=== PATIENT | female | born 1940 | race Caucasian/White ===

== ENCOUNTER 2017-05-30 08:40 | Day surgery (SDC) | payer OTHER, MEDICAID ==
--- NOTE | 2017-05-30 08:00 | PDHPUP ---
History & Physical Update H&P update statement: This history and physical update is based on an assessment of the patient which was completed after admission or registration (within 24 hours), but prior to the surgery/procedure. H&P update: H&P reviewed & patient examined, no change in patient's condition since H&P completed
[~2017-05-30 08:40] MED LIST: BUPIVACAINE 0.5% 30 ML SDV ONE; PAPAVERINE HCL 60 MG/2 ML SDV ONE; PROTAMINE SULFATE 50 MG/5 ML VIAL IVP ONE; THROMBIN (BOVINE) 20,000 UNIT SPRAY TP ONE; ceFAZolin 2 GM/DEXTROSE 100 ML IV ONE
[2017-05-30] MEDS ORDERED: LIDOCAINE 1% 2 ML INJ ONE (09:05)
[2017-05-30] MEDS ORDERED: CEFAZOLIN 2 GM/DEXTROSE/100 ML BAG IV ONE (09:05)
[2017-05-30] MEDS ORDERED: NS 1,000 ML IV ONE (09:43)
[2017-05-30] MEDS ORDERED: LIDOCAINE 1% 2 ML INJ ID PRN (09:43)
[2017-05-30 09:53] LABS: % IMMATURE GRANULYOCYTES 1.1 % (0.0-1.1); ABSOLUTE IMMATURE GRANULOCYTES 0.11 10^3/uL (0.00-0.10); ADD DIFF? NO; ADD MORPH? NO; ADD SCAN? NO; ATYPICAL LYMPHOCYTE FLAG 0 (0-99); FRAGMENT RBC FLAG 0 (0-99); HEMATOCRIT 29.8 % (38.0-47.0); HEMOGLOBIN 9.8 g/dL (12.6-16.3); LEFT SHIFT FLG 30 (0-99); LIPEMIA HEMOLYSIS FLAG 80 (0-99); MEAN CELL HEMOGLOBIN 28.6 pg (27.9-34.1); MEAN CELL HEMOGLOBIN CONCENTR. 32.9 g/dL (32.4-36.7); MEAN CELL VOLUME 86.9 fL (81.5-99.8); MEAN PLATELET VOLUME 9.5 fL (8.7-11.7); PLATELET CLUMPS FLAG 0 (0-99); PLATELET COUNT 233 10^3/uL (150-400); RED BLOOD CELL COUNT 3.43 10^6/uL (4.18-5.33); RED CELL DISTRIBUTION WIDTH 16.1 % (11.5-15.2)
[2017-05-30 10:09] LABS: ANION GAP 14 mEq/L (8-16); CALCIUM 9.3 mg/dL (8.5-10.4); CARBON DIOXIDE 23 mEq/l (22-31); CHLORIDE 99 mEq/L (97-110); CREATININE 2.4 mg/dL (0.6-1.0); GLOMERULAR FILTRATION RATE 20; GLUCOSE 95 mg/dL (70-100); POTASSIUM 5.6 mEq/L (3.5-5.2); SODIUM 136 mEq/L (134-144)
[2017-05-30] MEDS ORDERED: PROPOFOL/EMULSION 500 MG/50 ML BOTTLE IV ONE (10:13)
[2017-05-30] MEDS ORDERED: fentaNYL 100 MCG/2 ML INJ ONE ×2 (10:16→10:57)
[2017-05-30] MEDS ORDERED: VASOPRESSIN 20 UNIT/ML VIAL ONE (10:23)
[2017-05-30] MEDS ORDERED: fentaNYL 100 MCG/2 ML INJ IVP PRN (11:21)
[2017-05-30] MEDS ORDERED: NALOXONE HCL 0.4 MG/ML INJ IVP PRN (11:21)
--- NOTE | 2017-05-30 11:35 | PDANEPAE ---
ANE History of Present Illness present for AVF for ESRD ANE Past Medical History - Cardiovascular History Hx Hypertension: Yes Hx Arrhythmias: Yes Hx Chest Pain: No Hx Coronary Artery / Peripheral Vascular Disease: Yes Hx CHF / Valvular Disease: Yes Hx Palpitations: No - Pulmonary History Hx COPD: Yes Hx Asthma/Reactive Airway Disease: No Hx Recent Upper Respiratory Infection: No Hx Oxygen in Use at Home: Yes O2 in Use at Home (L/minute): 2L Hx Sleep Apnea: Yes Sleep Apnea Screening Result - Last Documented: Positive - Neurologic History Hx Cerebrovascular Accident: No Hx Seizures: No Hx Dementia: No - Endocrine History Hx Diabetes: Yes Obesity: yes, moderate - Renal History Hx Renal Disorders: Yes Renal History Comment: END STAGE RENAL DISEASE - Liver History Hx Hepatic Disorders: No - Neurological & Psychiatric Hx Hx Neurological and Psychiatric Disorders: Yes Neurological / Psychiatric History Comment: DEPRESSION - Cancer History Hx Cancer: Yes Cancer History Comment: RIGHT BREAST CANCER CURRENTLY - - Congenital Disorder History Hx Congenital Disorders: No - GI History Hx Gastrointestinal Disorders: No - Chronic Pain History Chronic Pain: No - Surgical History Prior Surgeries: PARTIAL HYSTERECTOMY 2004. 1971 ("I THINK, I CAN'T REMEMBER OFF HAND") ANE Review of Systems Review of systems is: negative - Exercise capacity Exercise capacity: <4 METS METS (RN): 2 METS ANE Patient History - Allergies Allergies/Adverse Reactions: codeine Allergy (Verified 05/29/17 17:28) - Home Medications Home medications: home medication list seen and reviewed Home Medications: ACETAMINOPHEN 05/26/17 [Last Taken 05/29/17] Albuterol 05/26/17 [Last Taken 05/29/17] Allopurinol 05/26/17 [Last Taken 05/29/17] Anastrozole 05/26/17 [Last Taken 05/29/17] Bumex 05/26/17 [Last Taken 05/29/17] CULTURELLE 05/26/17 [Last Taken Unknown] Carvedilol 05/26/17 [Last Taken 05/29/17] Ditropan 05/26/17 [Last Taken 05/29/17] Dulcolax 05/26/17 [Last Taken 3 Months Ago] Ferrous Sulfate 05/26/17 [Last Taken 05/29/17 07:00] Flonase Nasal [place] 05/26/17 [Last Taken 2 Days Ago] Glucotrol 05/26/17 [Last Taken 05/29/17 20:00] Heparin 05/26/17 [Last Taken Unknown] Isosorbide Dinitrate 05/26/17 [Last Taken 3 Months Ago] Lipitor 05/26/17 [Last Taken 05/29/17 20:00] Miconazole 05/26/17 [Last Taken 1 Month Ago] Norvasc 05/26/17 [Last Taken 05/30/17 07:00] Pepcid 05/26/17 [Last Taken 1 Month Ago] Promethazine 25 mg Prepack #4 05/26/17 [Last Taken 3 Months Ago] Senokot 05/26/17 [Last Taken 3 Months Ago] Synthroid 05/26/17 [Last Taken 05/29/17 08:00] VITAMIN D 05/26/17 [Last Taken 05/29/17 08:00] Voltaren 0.1% (*) 05/26/17 [Last Taken 2 Months Ago] Zantac 05/26/17 [Last Taken 05/29/17] Zofran 05/26/17 [Last Taken 3 Weeks Ago] hydrALAZINE 05/26/17 [Last Taken 05/29/17 20:00] - NPO status NPO Status: no food or drink >8 hours NPO Since - Liquids (Date): 05/30/17 NPO Since - Liquids (Time): 06:00 NPO Since - Solids (Date): 05/29/17 NPO Since - Solids (Time): 21:00 - Smoking Hx Smoking Status: Never smoked - Family Anes Hx Family Hx Anesthesia Complications: N/A ANE Labs/Vital Signs - Labs Result Diagrams: 05/30/17 09:31 05/29/17 17:25 - Vital Signs Blood Pressure: 156/82 Heart Rate: 74 Respiratory Rate: 16 O2 Sat (%): 98 Height: 157.48 cm Weight: 97.976 kg ANE Physical Exam - Airway Neck exam: FROM Mallampati Score: Class 2 - Pulmonary Pulmonary: no respiratory distress - Cardiovascular Cardiovascular: regular rate and rhythym - ASA Status ASA Status: IV ANE Anesthesia Plan Anesthesia Plan: GA w LMA Urgent/Emergent Case: Pratima isaacs completed preop but documented later for safe timely pt care
[2017-05-30] MEDS ORDERED: HYDROCODONE/APAP 5/325 TAB PO PRN (11:46)
--- NOTE | 2017-05-30 11:48 | POSTOPPROG ---
Post Op Note Date of Operation: 05/30/17 Surgeon: Guero Mcdonald Grinder Watch Parts: Geni Modi Anesthesiologist: Nilson Pascual Anesthesia: GET(General Endotracheal) Pre-op Diagnosis: CRF Post-op Diagnosis: same Procedure: LUE brachiocephalic AVF Findings: good thrill, cephalic vein goes deep proximally Inf/Abcess present in the surg proc area at time of surgery?: No EBL: Minimal Complications: none
[2017-05-30 12:24] VITALS: TEMP 98.2
[2017-05-30 12:26] VITALS: BP 143/45; PULSE 91; RESP 16; O2SAT 96
--- NOTE | 2017-05-31 05:28 | GOP ---
[f rep st] OPERATIVE REPORT DATE OF OPERATION: SURGEON: Guero Mcdonald MD POST COMMANDER: RAMYA Pedro ANESTHESIOLOGIST: Dr. Pascual. PREOPERATIVE DIAGNOSIS: Chronic renal failure. POSTOPERATIVE DIAGNOSIS: Chronic renal failure. PROCEDURE PERFORMED: Ultrasound vein mapping left arm and a left brachiocephalic AV fistula. FINDINGS: The patient was found to have an adequate cephalic vein in the left upper arm. Cephalic vein at the wrist was quite small. The basilic vein was quite huge as well in the upper arm. Both basilic and cephalic veins were somewhat deep in the upper arm. DESCRIPTION OF PROCEDURE: Patient taken to the operating room, received satisfactory general endotr acheal anesthesia by Dr. Pascual. She was placed in supine position with the left arm outstretched o n the arm board, prepped and draped in the usual sterile fashion. Using ultrasound, the veins were evaluated as noted above. It was elected to proceed with brachiocephalic AV fistula. A curvilinear incision was made in the antecubital space. Dissection extended down through the subc utaneous tissue and through the biceps aponeurosis, and the brachial artery was dissected free and c ontrolled with vessel loops. The cephalic vein was dissected free all the way down into the forearm where it began to divide. The branches were triply ligated with silk and divided, and the distal p ortion of the cephalic vein was prepared for anastomosis. The patient was fully heparinized at this point and an end-to-side anastomosis was made to the brachial artery, creating a 1 cm anastomosis w ith a running 6-0 Prolene suture. Flow was first established through the AV fistula and then back d own the hand. She maintained a radial pulse and excellent flow in the AV fistula. Hemostasis was a ssured. Heparin was reversed with protamine. The wound was sprayed with some topical thrombin and infiltrated with 0.5% Marcaine and closed in layers using 3-0 Vicryl for the subcutaneous tissue, 4- 0 Monocryl subcuticular stitch for the skin. All layers infiltrated with 0.5% Marcaine. Blood loss was less than 20 cc. There were no complications. Taken to the recovery room in good condition. /[id number]/MODL
== END 2017-05-30 12:44 | disposition home or self-care (01) ==
LOC: FSGY 08:40
PROVIDERS: ATTEND Surgery
PROC: 03180ZD Bypass Left Brachial Artery to Upper Arm Vein, Open Approach (ICD-10-PCS; principal; 2017-05-30 10:45)
DX: N18.6 End stage renal disease (principal); E11.22 Type 2 diabetes mellitus with diabetic chronic kidney disease; I13.11 Hypertensive heart and chronic kidney disease without heart failure, with stage 5 chronic kidney disease, or end stage renal disease; I50.9 Heart failure, unspecified; C50.911 Malignant neoplasm of unspecified site of right female breast; I25.10 Atherosclerotic heart disease of native coronary artery without angina pectoris; I27.2 Other secondary pulmonary hypertension; G47.33 Obstructive sleep apnea (adult) (pediatric); I34.0 Nonrheumatic mitral (valve) insufficiency; I42.9 Cardiomyopathy, unspecified; E03.9 Hypothyroidism, unspecified; I07.1 Rheumatic tricuspid insufficiency; E66.01 Morbid (severe) obesity due to excess calories; R41.89 Other symptoms and signs involving cognitive functions and awareness; H35.30 Unspecified macular degeneration; Z68.39 Body mass index [BMI] 39.0-39.9, adult; Z82.49 Family history of ischemic heart disease and other diseases of the circulatory system; Z99.2 Dependence on renal dialysis; Z79.4 Long term (current) use of insulin
CPT/HCPCS: J0690; J1644; J2440; J2704; J2720; J3010

== ENCOUNTER → 2018-10-09 | Outpatient (CLI) | payer OTHER, MEDICAID | LOC: BHFA 15:30 | PROVIDERS: ATTEND Internal Medicine Cardiovascular Disease | DX: R00.1 Bradycardia, unspecified (principal) ==

== ENCOUNTER 2018-10-15 13:06 | Inpatient (IN) | payer OTHER, MEDICAID ==
--- NOTE | 2018-10-15 13:20 | EDPHY ---
HPI/HX/ROS/PE/MDM Narrative: CHIEF COMPLAINT: Bradycardia, chest pain, cough HPI: This is a 78 y/o female with a history of diabetes, hypertension, and end- stage renal disease arriving via EMS from dialysis complaining of chest pain and a cough onset during dialysis this afternoon. She completed 0.7/3.5L of her dialysis treatment today when staff noticed she was bradycardic in the 40s. She complained of associated mild chest pain that she has difficulty describing. She has remained normotensive and alert throughout this episode. She also complains of a productive cough for the last two weeks with yellow sputum. Per records, she has been evaluated for similar episodes of bradycardia and lightheadedness during dialysis. An electrophysiology consult from June showed sinus pauses and PACs in bigeminy that was thought to be vasovagal in nature. There was discussion on completing Holter monitoring to further assess this. REVIEW OF SYSTEMS: Aside from elements discussed in the HPI, a comprehensive 10-point review of systems was reviewed and is negative. PMH: Diabetes type II, end stage renal disease, hypertension, anemia, developmental delay, obesity. Records reviewed including transfer paperwork from [facility] [employer] [employer]. SOCIAL HISTORY: Lives at [facility]. 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 Change House Attendant: Dr. Potts PHYSICAL EXAM: General:Patient is alert, in no acute distress. Obese. ENT:Eyes are normal to inspection. ENT inspection normal. Neck: Normal inspection. Full range of motion. Respiratory:No respiratory distress. Breath sounds normal bilaterally. Cardiovascular: Bradycardic rate. Normal cap refill. Abdomen:The abdomen is nontender to palpation. There are no peritoneal signs. Back: Normal to inspection. No tenderness to palpation. Skin: Normal color. No rash. Warm and dry. Extremities: NNo signs of trauma. Neuro: No focal deficits. ED Course: This is an obese 78 y/o dialysis patient with multiple prior episode of bradycardia during dialysis who presents with the same today now associated with vague chest pain. Records show she was previously evaluated by cardiology for this with plan for Holter monitor, though we do not have access to those records. She is actively coughing during exam. Plan for IV, labs, EKG, chest x- ray, and cardiology consult. The 12 lead EKG was interpreted by myself. Junctional bigeminy. See hard copy and/or "tracemaster" electronic copy for interpretation. POC Troponin 0.00. Creatinine 5.5. 1325: Consulted with Dr. Quiroz, erection shop supervisor. 1346: Consulted with Dr. Quiroz. She recommends admission. Spoke with hospitalist service. Dr. Ovalle accepts admission. - Data Points Imaging Results: Imaging Impressions Chest X-Ray 10/15/18 13:21 Impression: Mild fluid overload. No rigoberto failure or edema. Imaging: I viewed and interpreted images myself Laboratory Results: Laboratory Results 10/15/18 13:00 10/15/18 13:00 10/15/18 10/15/18 10/15/18 13:15 13:00 13:00 WBC RBC Hgb Hct MCV MCH MCHC RDW Plt Count MPV Neut % (Auto) Lymph % (Auto) [place] % (Auto) Eos % (Auto) Baso % (Auto) Nucleat RBC Rel Count Absolute Neuts (auto) Absolute Lymphs (auto) Absolute Monos (auto) Absolute Eos (auto) Absolute Basos (auto) Absolute Nucleated RBC Immature Gran % Immature Gran # PT 13.2 SEC SEC (12.0-15.0) INR 0.98 (0.83-1.16) APTT 30.5 SEC SEC (23.0-38.0) Sodium 134 mEq/L L mEq/L (135-145) Potassium 4.4 mEq/L mEq/L (3.3-5.0) Chloride 91 mEq/L L mEq/L (97-110) Carbon Dioxide 28 mEq/l mEq/l (22-31) Anion Gap 15 mEq/L H mEq/L (6-14) BUN 51 mg/dL H mg/dL (7-23) Creatinine 5.5 mg/dL H mg/dL (0.6-1.0) Estimated GFR 8 Glucose 143 mg/dL H mg/dL (70-100) Calcium 9.0 mg/dL mg/dL (8.5-10.4) POC Troponin I 0.00 ng/mL ng/mL (0.00-0.08) 10/15/18 13:00 WBC 13.45 10^3/uL H 10^3/uL (3.80-9.50) RBC 3.23 10^6/uL L 10^6/uL (4.18-5.33) Hgb 10.0 g/dL L g/dL (12.6-16.3) Hct 31.0 % L % (38.0-47.0) MCV 96.0 fL fL (81.5-99.8) MCH 31.0 pg pg (27.9-34.1) MCHC 32.3 g/dL L g/dL (32.4-36.7) RDW 15.9 % H % (11.5-15.2) Plt Count 250 10^3/uL 10^3/uL (150-400) MPV 9.7 fL fL (8.7-11.7) Neut % (Auto) 74.7 % H % (39.3-74.2) Lymph % (Auto) 15.5 % % (15.0-45.0) [place] % (Auto) 6.1 % % (4.5-13.0) Eos % (Auto) 2.5 % % (0.6-7.6) Baso % (Auto) 0.4 % % (0.3-1.7) Nucleat RBC Rel Count 0.0 % % (0.0-0.2) Absolute Neuts (auto) 10.03 10^3/uL H 10^3/uL (1.70-6.50) Absolute Lymphs (auto) 2.09 10^3/uL 10^3/uL (1.00-3.00) Absolute Monos (auto) 0.82 10^3/uL H 10^3/uL (0.30-0.80) Absolute Eos (auto) 0.34 10^3/uL 10^3/uL (0.03-0.40) Absolute Basos (auto) 0.06 10^3/uL 10^3/uL (0.02-0.10) Absolute Nucleated RBC 0.00 10^3/uL 10^3/uL (0-0.01) Immature Gran % 0.8 % % (0.0-1.1) Immature Gran # 0.11 10^3/uL H 10^3/uL (0.00-0.10) PT INR APTT Sodium Potassium Chloride Carbon Dioxide Anion Gap BUN Creatinine Estimated GFR Glucose Calcium POC Troponin I Point of Care Test Results: Chemistry 10/15/18 13:15 POC Troponin I 0.00 ng/mL ng/mL (0.00-0.08) General Time Seen by Provider: 10/15/18 13:07 Initial Vital Signs: Initial Vital Signs Heart Rate 64 10/15/18 13:10 Respiratory Rate 21 H 10/15/18 13:10 Blood Pressure 128/40 H 10/15/18 13:10 O2 Sat (%) 95 10/15/18 13:10 O2 Delivery Mode Nasal Cannula O2 (L/minute) 2 Allergies/Adverse Reactions: codeine Allergy (Verified 05/29/17 17:28) Home Medications: Medication Instructions Recorded Acetaminophen [Tylenol 325mg (*)] 650 mg PO Q6 PRN 10/15/18 Albuterol [Proventil Neb] 2.5 mg IH Q4H PRN 10/15/18 Allopurinol [Allopurinol 100 MG 100 mg PO DAILY 10/15/18 (*)] Anastrozole [Arimidex 1 mg (*)] 1 mg PO DAILY 10/15/18 Aspirin EC [Aspirin EC 81 mg (*)] 81 mg PO DAILY 10/15/18 Atorvastatin Calcium [Lipitor 40 40 mg PO DAILY 10/15/18 mg (*)] Calcium Carbonate [Tums X-Str] 300 mg PO TID 10/15/18 Cholecalciferol Vit D3 [Vitamin D3 1,000 units PO DAILY 10/15/18 (*)] Ferrous Sulfate [Ferrous Sulf 325 325 mg PO DAILY 10/15/18 MG (*)] Fluticasone Propionate [Flonase 1 spray EACHNARE BID PRN 10/15/18 Allergy Relief] Furosemide [Lasix 40 MG (*)] 40 mg PO DAILY 10/15/18 Gabapentin [Neurontin 100 MG (*)] 100 mg PO TID 10/15/18 Herbals/Supplements -Info Only 1 ea PO DAILY 10/15/18 Isosorbide Dinitrate [Isosorbide 20 mg PO BIDNITRATE 10/15/18 Dinitrate 20 mg (*)] Levothyroxine [Synthroid 75 mcg 75 mcg PO MOWEFR 10/15/18 (*)] Lidocaine 1% [Xylocaine-Mpf 1% SDV 0.5 ml IJ DAILY PRN 10/15/18 (*)] Lidocaine 2% Jelly [Lidocaine 2% 1 mike MM DAILY PRN 10/15/18 Jelly (*)] Meclizine HCl 25 mg PO TID PRN 10/15/18 Miconazole Nitrate [Desenex] 30 gm TP BID PRN 10/15/18 Nystatin Powder [Mycostatin Powder 1 mike TOP TID 10/15/18 (RX)] Polyethylene Glycol 3350 [Miralax 17 gm PO DAILY PRN 10/15/18 17 gm (*)] Promethazine HCl [Phenergan 25mg 25 mg PO DAILY PRN 10/15/18 (*)] Ranitidine HCl 150 mg PO BID 10/15/18 Sevelamer Carbonate [Renvela] 800 mg PO TIDMEAL 10/15/18 Sodium Chloride [Saline Nose [place]] 1 spray NS Q1HR PRN 10/15/18 Triamcinolone 0.1% [Triamcinolone 1 mike TP BID PRN 10/15/18 0.1% Cream (*)] guaiFENesin [Cough Syrup] 10 ml PO Q6H PRN 10/15/18 hydrALAZINE [Apresoline 50 mg (*)] 50 mg PO TID 10/15/18 methylPREDNISolone ACETATE 20 mg IJ DAILY PRN 10/15/18 [Depo-Medrol 20 mg] traMADol [Ultram 50 mg (*)] 50 mg PO BID PRN 10/15/18 Departure - Departure Disposition: [facility] Acute Clinical Impression: Junctional bradycardia Chest pain Qualifiers: Chest pain type: other chest pain Qualified Code(s): R07.89 - Other chest pain Condition: Fair Report Scribed for: Gage Barajas Report Scribed by: Lucita Hernadnez Date of Report: 10/15/18 Time of Report: 13:06 Physician Review and Approval Statement: Portions of this note were transcribed by an ED scribe. I personally performed the history, physical exam, and medical decision making; and confirm the accuracy of the information in the transcribed note.
[2018-10-15 13:29] LABS: PLATELET COUNT 250 10^3/uL (150-400)
[2018-10-15 13:36] LABS: INR 0.98 (0.83-1.16); PROTIME(PATIENT) 13.2 SEC (12.0-15.0)
--- NOTE | 2018-10-15 14:34 | PDCONSULT ---
[facility] Note: Assessment/Plan: ESRD: on HD MWF, only got about 30 min dialysis today. - No emergent HD needs at this time. - WIll plan on HD tomorrow off-schedule and then resume MWF schedule. Anemia: Hgb at goal at 10.0, pt gets epo and iron as needed in outpatient dialysis unit. Bradycardia: would recommend cardiology consult. ROBERT: will check phos with am labs. Thank you for the interesting consult. Nephrology will continue to follow, please call if you have any additional questions or concerns. H & P Stated Complaint: cough and bradycardia Time Seen by Provider: 10/15/18 13:07 HPI/ROS: HPI: Ms. Burnett is a 78 yo F with h/o ESRD on HD MWF at [facility]. Pt went to her dialysis unit today and was found to have bradycardia in 30s, was put on dialysis and did a little over 30 minutes of dialysis but remained bradycardic, taken off and sent to ER. Pt has been seeing cardiology recently and supposed to be getting a holter monitor, not yet interpreted. Pt states she otherwise feels fine. ROS: positive per HPI, rest of 10-point ROS negative Source: Patient - Medical/Surgical History Hx Chronic Respiratory Disease: Yes Hx Diabetes: Yes Hx Renal Disease: Yes Hx Cirrhosis: No Hx Alcoholism: No Hx HIV/AIDS: No Hx Splenectomy or Spleen Trauma: No Other PMH: CHF, diabetes, hypothyroid, Chronic bronchitis - Family History Significant Family History: No pertinent family hx - Social History Smoking Status: Never smoked - Physical Exam Exam: General: alert and oriented, no acute distress Eyes: EOMI, PERRL OP: Clear, MMM Neck: supple, no thyromegaly CV: bradycardia, regularly irregular rhythm Resp: CTA bilat, nonlabored respirations Abd: Soft, NT/ND Ext: trace edema BLE Neuro: CN II-XII grossly intact, no asterixis Psych: cooperative, appropriate mood and affect Access: LUE AVF with thrill and bruit appreciated Constitutional: Initial Vital Signs Temperature (C) 36.7 C 10/15/18 13:12 Heart Rate 73 10/15/18 13:12 Respiratory Rate 21 H 10/15/18 13:12 O2 Sat (%) 95 10/15/18 13:12 O2 Delivery Mode Nasal Cannula O2 (L/minute) 2 Allergies/Adverse Reactions: codeine Allergy (Verified 05/29/17 17:28) Home Medications: Medication Instructions Recorded ACETAMINOPHEN 05/26/17 Albuterol 05/26/17 Allopurinol 05/26/17 Anastrozole 05/26/17 Bumex 05/26/17 CULTURELLE 05/26/17 Carvedilol 05/26/17 Ditropan 05/26/17 Dulcolax 05/26/17 Ferrous Sulfate 05/26/17 Flonase Nasal [place] 05/26/17 Glucotrol 05/26/17 Heparin 05/26/17 Isosorbide Dinitrate 05/26/17 Lipitor 05/26/17 Miconazole 05/26/17 Norvasc 05/26/17 Pepcid 05/26/17 Promethazine 25 mg Prepack #4 05/26/17 Senokot 05/26/17 Synthroid 05/26/17 VITAMIN D 05/26/17 Voltaren 0.1% (*) 05/26/17 Zantac 05/26/17 Zofran 05/26/17 hydrALAZINE 05/26/17 Hydrocodone/APAP 5/325 [[place] 1 - 2 tab PO Q4H PRN #20 tab 05/30/17 5/325 (*)] Lab and Imaging 10/15/18 13:00 10/15/18 13:00 WBC 13.45 10^3/uL (3.80-9.50) H 10/15/18 13:00 RBC 3.23 10^6/uL (4.18-5.33) L 10/15/18 13:00 Hgb 10.0 g/dL (12.6-16.3) L 10/15/18 13:00 Hct 31.0 % (38.0-47.0) L 10/15/18 13:00 MCV 96.0 fL (81.5-99.8) 10/15/18 13:00 MCH 31.0 pg (27.9-34.1) 10/15/18 13:00 MCHC 32.3 g/dL (32.4-36.7) L 10/15/18 13:00 RDW 15.9 % (11.5-15.2) H 10/15/18 13:00 Plt Count 250 10^3/uL (150-400) 10/15/18 13:00 MPV 9.7 fL (8.7-11.7) 10/15/18 13:00 Neut % (Auto) 74.7 % (39.3-74.2) H 10/15/18 13:00 Lymph % (Auto) 15.5 % (15.0-45.0) 10/15/18 13:00 [place] % (Auto) 6.1 % (4.5-13.0) 10/15/18 13:00 Eos % (Auto) 2.5 % (0.6-7.6) 10/15/18 13:00 Baso % (Auto) 0.4 % (0.3-1.7) 10/15/18 13:00 Nucleat RBC Rel Count 0.0 % (0.0-0.2) 10/15/18 13:00 Absolute Neuts (auto) 10.03 10^3/uL (1.70-6.50) H 10/15/18 13:00 Absolute Lymphs (auto) 2.09 10^3/uL (1.00-3.00) 10/15/18 13:00 Absolute Monos (auto) 0.82 10^3/uL (0.30-0.80) H 10/15/18 13:00 Absolute Eos (auto) 0.34 10^3/uL (0.03-0.40) 10/15/18 13:00 Absolute Basos (auto) 0.06 10^3/uL (0.02-0.10) 10/15/18 13:00 Absolute Nucleated RBC 0.00 10^3/uL (0-0.01) 10/15/18 13:00 Immature Gran % 0.8 % (0.0-1.1) 10/15/18 13:00 Immature Gran # 0.11 10^3/uL (0.00-0.10) H 10/15/18 13:00 PT 13.2 SEC (12.0-15.0) 10/15/18 13:00 INR 0.98 (0.83-1.16) 10/15/18 13:00 APTT 30.5 SEC (23.0-38.0) 10/15/18 13:00 Sodium 134 mEq/L (135-145) L 10/15/18 13:00 Potassium 4.4 mEq/L (3.3-5.0) 10/15/18 13:00 Chloride 91 mEq/L (97-110) L 10/15/18 13:00 Carbon Dioxide 28 mEq/l (22-31) 10/15/18 13:00 Anion Gap 15 mEq/L (6-14) H 10/15/18 13:00 BUN 51 mg/dL (7-23) H 10/15/18 13:00 Creatinine 5.5 mg/dL (0.6-1.0) H 10/15/18 13:00 Estimated GFR 8 10/15/18 13:00 Glucose 143 mg/dL (70-100) H 10/15/18 13:00 Calcium 9.0 mg/dL (8.5-10.4) 10/15/18 13:00 POC Troponin I 0.00 ng/mL (0.00-0.08) 10/15/18 13:15
[2018-10-15] MEDS ORDERED: HYDROCODONE/APAP 5/325 TAB PO PRN (15:20)
[2018-10-15] MEDS ORDERED: HYDROmorphONE/DILAUDID 1 MG/ML INJ IVP PRN (15:20)
[2018-10-15] MEDS ORDERED: ONDANSETRON DISINTEGRATING 4 MG TAB PO PRN (15:20)
[2018-10-15] MEDS ORDERED: oxyCODONE IR 5 MG TAB PO PRN (15:20)
[2018-10-15] MEDS ORDERED: ONDANSETRON 4 MG/2 ML VIAL IVP PRN (15:20)
[2018-10-15] MEDS ORDERED: PROMETHAZINE HCL 25 MG/ML INJ IVP PRN (15:20)
[2018-10-15] MEDS ORDERED: PROMETHAZINE HCL 25 MG TAB PO PRN (17:31)
[2018-10-15] MEDS ORDERED: POLYETHYLENE GLYCOL 3350 17 GM PKT PO PRN (17:31)
[2018-10-15] MEDS ORDERED: MICONAZOLE NITRATE TP PRN (17:31)
[2018-10-15] MEDS ORDERED: LIDOCAINE 2% JELLY 5 ML TUBE MM PRN (17:31)
[2018-10-15] MEDS ORDERED: SODIUM CL NASAL 45 ML BTL NS PRN (17:31)
[2018-10-15] MEDS ORDERED: TRIAMCINOLONE 0.1% 15 GM CRTUBE TP PRN (17:31)
[2018-10-15] MEDS ORDERED: METHYLPREDNISOLONE ACETATE IJ PRN (17:31)
[2018-10-15] MEDS ORDERED: MECLIZINE HCL 25 MG TAB PO PRN (17:31)
--- NOTE | 2018-10-15 17:40 | PDGENHP ---
History and Physical - Chief Complaint bradycardic - History of Present Illness 78 yo F with multiple medical issues including ESRD, CHF, DM2 presenting from HD clinic with bradycardia to the 30s. Patient notes she was not very symptomatic when this was happening other than maybe a bit more fatigued and sob. She has had this happen several other times recently and was hospitalized previously at [facility] and seen by a pharmacy operations specialist at [facility] as well as at [facility] and recently completed wearing a Holter for one week. Her daughter accompanies her here today and states that it has happened a couple of times at HD and at those times was attributed to hyperkalemia, but it has happened outside of HD as well, and the pharmacy operations specialist at [facility] thought it was due to vasovagal events. Patient has had a 'cold' recently, with productive cough but not really any other sxs. She denies chest pain, lightheadedness or near syncope or sob or change in exercise capacity. She only completed 1 hour of HD today due to her bradycardia. History Information - Allergies/Home Medication List Allergies/Adverse Reactions: codeine Allergy (Verified 05/29/17 17:28) Home Medications: Acetaminophen [Tylenol 325mg (*)] 650 mg PO Q6 PRN 10/15/18 [Last Taken Unknown] Albuterol [Proventil Neb] 2.5 mg IH Q4H PRN 10/15/18 [Last Taken Unknown] Allopurinol [Allopurinol 100 MG (*)] 100 mg PO DAILY 10/15/18 [Last Taken Unknown] Anastrozole [Arimidex 1 mg (*)] 1 mg PO DAILY 10/15/18 [Last Taken Unknown] Aspirin EC [Aspirin EC 81 mg (*)] 81 mg PO DAILY 10/15/18 [Last Taken Unknown] Atorvastatin Calcium [Lipitor 40 mg (*)] 40 mg PO DAILY 10/15/18 [Last Taken Unknown] Calcium Carbonate [Tums X-Str] 300 mg PO TID 10/15/18 [Last Taken Unknown] Cholecalciferol Vit D3 [Vitamin D3 (*)] 1,000 units PO DAILY 10/15/18 [Last Taken Unknown] Ferrous Sulfate [Ferrous Sulf 325 MG (*)] 325 mg PO DAILY 10/15/18 [Last Taken Unknown] Fluticasone Propionate [Flonase Allergy Relief] 1 spray EACHNARE BID PRN [Last Taken Unknown] Furosemide [Lasix 40 MG (*)] 40 mg PO DAILY 10/15/18 [Last Taken Unknown] Gabapentin [Neurontin 100 MG (*)] 100 mg PO TID 10/15/18 [Last Taken Unknown] Herbals/Supplements -Info Only 1 ea PO DAILY 10/15/18 [Last Taken Unknown] Isosorbide Dinitrate [Isosorbide Dinitrate 20 mg (*)] 20 mg PO BIDNITRATE [Last Taken Unknown] Levothyroxine [Synthroid 75 mcg (*)] 75 mcg PO MOWEFR 10/15/18 [Last Taken Unknown] Lidocaine 1% [Xylocaine-Mpf 1% SDV (*)] 0.5 ml IJ DAILY PRN 10/15/18 [Last Taken Unknown] Lidocaine 2% Jelly [Lidocaine 2% Jelly (*)] 1 mike MM DAILY PRN 10/15/18 [Last Taken Unknown] Meclizine HCl 25 mg PO TID PRN 10/15/18 [Last Taken Unknown] Miconazole Nitrate [Desenex] 30 gm TP BID PRN 10/15/18 [Last Taken Unknown] Nystatin Powder [Mycostatin Powder (RX)] 1 mike TOP TID 10/15/18 [Last Taken Unknown] Polyethylene Glycol 3350 [Miralax 17 gm (*)] 17 gm PO DAILY PRN 10/15/18 [Last Taken Unknown] Promethazine HCl [Phenergan 25mg (*)] 25 mg PO DAILY PRN 10/15/18 [Last Taken Unknown] Ranitidine HCl 150 mg PO BID 10/15/18 [Last Taken Unknown] Sevelamer Carbonate [Renvela] 800 mg PO TIDMEAL 10/15/18 [Last Taken Unknown] Sodium Chloride [Saline Nose [place]] 1 spray NS Q1HR PRN 10/15/18 [Last Taken Unknown] Triamcinolone 0.1% [Triamcinolone 0.1% Cream (*)] 1 mike TP BID PRN 10/15/18 [ Last Taken Unknown] guaiFENesin [Cough Syrup] 10 ml PO Q6H PRN 10/15/18 [Last Taken Unknown] hydrALAZINE [Apresoline 50 mg (*)] 50 mg PO TID 10/15/18 [Last Taken Unknown] methylPREDNISolone ACETATE [Depo-Medrol 20 mg] 20 mg IJ DAILY PRN 10/15/18 [ Last Taken Unknown] traMADol [Ultram 50 mg (*)] 50 mg PO BID PRN 10/15/18 [Last Taken Unknown] I have personally reviewed and updated: family history, medical history, social history, surgical history - Past Medical History atrial fibrillation, coronary artery disease, cancer (breast), CHF (diastolic, non ischemic), hypertension, hyperlipidemia Additional medical history: cognitively impaired/developmental delay. merced. morbid obesity. ESRD-MWF HD. hypothyroid. pulm htn - Social History Smoking Status: Never smoked Review of Systems Review of Systems: ROS: 10pt was reviewed & negative except for what was stated in HPI & below Physical Exam Physical Exam: Temp Pulse Resp BP Pulse Ox 36.2 C 55 L 18 148/64 H 98 10/15/18 17:26 10/15/18 17:26 10/15/18 17:26 10/15/18 17:26 10/15/18 17:26 O2 (L/minute) 2 Constitutional: no apparent distress, not in pain, obese Eyes: PERRL, anicteric sclera Ears, Nose, Mouth, Throat: moist mucous membranes, hearing normal, ears appear normal Cardiovascular: no murmur, rub, or gallop, irregularly irregular, bradycardia, edema Respiratory: no respiratory distress, no rales or rhonchi, clear to auscultation Gastrointestinal: normoactive bowel sounds, soft, non-tender abdomen Genitourinary: no bladder tenderness Skin: warm, normal color Musculoskeletal: no muscle tenderness Neurologic: AAOx3 Psychiatric: interacting appropriately, not anxious, not encephalopathic Lab Data & Imaging Review 10/15/18 13:00 10/15/18 13:00 WBC 13.45 10^3/uL (3.80-9.50) H 10/15/18 13:00 RBC 3.23 10^6/uL (4.18-5.33) L 10/15/18 13:00 Hgb 10.0 g/dL (12.6-16.3) L 10/15/18 13:00 Hct 31.0 % (38.0-47.0) L 10/15/18 13:00 MCV 96.0 fL (81.5-99.8) 10/15/18 13:00 MCH 31.0 pg (27.9-34.1) 10/15/18 13:00 MCHC 32.3 g/dL (32.4-36.7) L 10/15/18 13:00 RDW 15.9 % (11.5-15.2) H 10/15/18 13:00 Plt Count 250 10^3/uL (150-400) 10/15/18 13:00 MPV 9.7 fL (8.7-11.7) 10/15/18 13:00 Neut % (Auto) 74.7 % (39.3-74.2) H 10/15/18 13:00 Lymph % (Auto) 15.5 % (15.0-45.0) 10/15/18 13:00 [place] % (Auto) 6.1 % (4.5-13.0) 10/15/18 13:00 Eos % (Auto) 2.5 % (0.6-7.6) 10/15/18 13:00 Baso % (Auto) 0.4 % (0.3-1.7) 10/15/18 13:00 Nucleat RBC Rel Count 0.0 % (0.0-0.2) 10/15/18 13:00 Absolute Neuts (auto) 10.03 10^3/uL (1.70-6.50) H 10/15/18 13:00 Absolute Lymphs (auto) 2.09 10^3/uL (1.00-3.00) 10/15/18 13:00 Absolute Monos (auto) 0.82 10^3/uL (0.30-0.80) H 10/15/18 13:00 Absolute Eos (auto) 0.34 10^3/uL (0.03-0.40) 10/15/18 13:00 Absolute Basos (auto) 0.06 10^3/uL (0.02-0.10) 10/15/18 13:00 Absolute Nucleated RBC 0.00 10^3/uL (0-0.01) 10/15/18 13:00 Immature Gran % 0.8 % (0.0-1.1) 10/15/18 13:00 Immature Gran # 0.11 10^3/uL (0.00-0.10) H 10/15/18 13:00 PT 13.2 SEC (12.0-15.0) 10/15/18 13:00 INR 0.98 (0.83-1.16) 10/15/18 13:00 APTT 30.5 SEC (23.0-38.0) 10/15/18 13:00 Sodium 134 mEq/L (135-145) L 10/15/18 13:00 Potassium 4.4 mEq/L (3.3-5.0) 10/15/18 13:00 Chloride 91 mEq/L (97-110) L 10/15/18 13:00 Carbon Dioxide 28 mEq/l (22-31) 10/15/18 13:00 Anion Gap 15 mEq/L (6-14) H 10/15/18 13:00 BUN 51 mg/dL (7-23) H 10/15/18 13:00 Creatinine 5.5 mg/dL (0.6-1.0) H 10/15/18 13:00 Estimated GFR 8 10/15/18 13:00 Glucose 143 mg/dL (70-100) H 10/15/18 13:00 Calcium 9.0 mg/dL (8.5-10.4) 10/15/18 13:00 POC Troponin I 0.00 ng/mL (0.00-0.08) 10/15/18 13:15 Visualized and Interpreted Chest x-ray results: Yes Chest X-Ray results: other (mild fluid overload) Visualized and Interpreted EKG results: Yes EKG additional interpertation: junctional bigeminy-tele monitoring intermittently appears c/w slow afib Assessment & Plan Assessment: Chest pain (Acute) Junctional bradycardia (Acute) 78 yo F with MMI presenting with bradycardia during HD # bradycardia: appears junctional versus slow a fib, has hx of same and prior w/ u including recent completion of 1 week holter monitor. Prior eval by [facility] Ruffling Machine Operator suggesting this is likely related to vasovagal events and that treatment should be aimed at eliminating triggers, though it seems likely that HD is a trigger and cannot be avoided. Cardiology consulted by ER doctor, monitoring on tele overnight, serial trops. May need pacemaker. # ESRD: on MWF HD, did not complete session today but appears only mildly volume up and electrolytes are wnl, renal consulted and plans for HD in am # chronic diastolic heart failure: non ischemic, mildly volume up as above, HD in am, previously had systolic dysfunction which has since normalized # DM2: not currently on any DM meds at home per current med list/ will start ssi , check A1c # VHD: with moderate MR, followed by cardiology # mreced: nocturnal oxygen # morbid obesity: with likely ohs as well, o2 at night # CAD: non obstructive # htn: on multiple meds including hydralazine, isosorbide and lasix--no pao blocking agents given her bradycardia, bp currently well controlled # cognitive dysfunction/developmental delay: [place] in [place], daughter accompanies her here today # observation status # FC Patient new to my care. Old records reviewed and summarized as above. Care plan reviewed with ER doctor, further hx obtained from patients daughter present at bedside.
[2018-10-15] MEDS ORDERED: LEVOTHYROXINE 75 MCG TAB PO SCH (17:45)
[2018-10-15] MEDS ORDERED: D50W 25 GM/50 ML SYR IVP PRN (18:44)
[2018-10-15] MEDS: traMADol 50 MG TAB PO PRN (20:07)
[2018-10-15] MEDS: SEVELAMER HCL 800 MG TAB PO SCH (20:07)
[2018-10-15] MEDS: FAMOTIDINE 20 MG TAB PO SCH (20:07)
--- NOTE | 2018-10-15 20:46 | CPEKG ---
Test Reason : OPEN Blood Pressure : / mmHG Vent. Rate : 039 BPM Atrial Rate : 000 BPM P-R Int : 224 ms QRS Dur : 126 ms QT Int : 538 ms P-R-T Axes : 000 048 074 degrees QTc Int : 434 ms Atrial fibrillation Left bundle branch block It appears that there are electronic pacemaker spikes which are random. This was also present on 2017, 16:52. Confirmed by Evelio Hightower ([id number]) on 10/15/2018 8:45:52 PM Referred By: Confirmed By:Evelio Hightower
[2018-10-15] MEDS: ALBUTEROL 3 ML DEYVIAL IH PRN (20:51)
[2018-10-15] MEDS: FLUTICASONE NASAL 120 SPRAYS/16 GM MDI EACHNARE SCH (21:05)
[2018-10-15] MEDS: CALCIUM CARBONATE 500 MG CHEWABLE TAB PO SCH (22:04)
[2018-10-15] MEDS: GABAPENTIN 100 MG CAP PO SCH (22:04)
[2018-10-15] MEDS: NYSTATIN POWDER 15 GM BTL TP SCH (22:04)
[2018-10-16] MEDS: ALBUTEROL 3 ML DEYVIAL IH PRN (06:10)
[2018-10-16] MEDS: ISOSORBIDE DINITRATE 20 MG TAB PO SCH ×2 (07:14→17:01)
[2018-10-16 08:04] LABS: PLATELET COUNT 198 10^3/uL (150-400)
[2018-10-16] MEDS: INSULIN LISPRO 100 UNIT/ML SC SCH ×3 (08:33→17:29)
--- NOTE | 2018-10-16 09:28 | SOAPPROG ---
BRIGHT Progress Note Assessment/Plan: Assessment/Plan: ESRD: on HD MWF, only got about 30 min of dialysis yesterday. - Pt seen on HD today. - Will plan on HD again tomorrow per routine. Anemia: pt gets epo and iron per outpatient dialysis unit. Bradycardia: cardiology consulted. ROBERT: will continue sevelamer. Subjective: No acute events overnight. She converted into NSR overnight. This am she is on dialysis. She started dialysis in NSR, the again developed bradycardia with apparent junctional rhythm, but went back into NSR after a few minutes. She remained asymptomatic through it. Objective: Vital Signs Temp Pulse Resp BP Pulse Ox 36.8 C 55 L 18 126/47 H 94 10/16/18 07:31 10/16/18 07:31 10/16/18 07:31 10/16/18 07:31 10/16/18 07:31 Laboratory Results 10/16/18 07:26 10/16/18 07:26 10/15/18 10/16/18 10/17/18 05:59 05:59 05:59 Intake Total 670 Balance 670 PT 13.2 SEC (12.0-15.0) 10/15/18 13:00 INR 0.98 (0.83-1.16) 10/15/18 13:00 General: alert and oriented, no acute distress Eyes: EOMI, PERRL OP: clear CV: RRR Resp: nonlabored respirations Abd: Soft, NT/ND Ext: no edema Neuro: CN II-XII grossly intact Psych: cooperative Access: LUE AVF cannulated ICD10 Worksheet Patient Problems: Problems Problem Status Onset Chest pain Acute Junctional bradycardia Acute
[2018-10-16] MEDS ORDERED: ceFAZolin 2 GM/DEXTROSE 100 ML IV ONE (10:09)
[2018-10-16] MEDS ORDERED: BACITRACIN IRRIGATION/NS 50,000 UNITS/1,000 ML BTL IRR ONE (10:09)
[2018-10-16] MEDS ORDERED: NS 1,000 ML IV ONE (10:09)
[2018-10-16] MEDS: FUROSEMIDE 40 MG TAB PO SCH (11:31)
[2018-10-16] MEDS: SEVELAMER HCL 800 MG TAB PO SCH ×3 (11:31→18:02)
[2018-10-16] MEDS: GABAPENTIN 100 MG CAP PO SCH ×3 (11:32→21:09)
[2018-10-16] MEDS: CHOLECALCIFEROL VIT D3 1,000 UNITS TAB PO SCH (11:32)
[2018-10-16] MEDS: CALCIUM CARBONATE 500 MG CHEWABLE TAB PO SCH ×3 (11:32→21:09)
[2018-10-16] MEDS: ATORVASTATIN CALCIUM 40 MG TAB PO SCH (11:32)
[2018-10-16] MEDS: ALLOPURINOL 100 MG TAB PO SCH (11:33)
[2018-10-16] MEDS: ASPIRIN EC 81 MG TAB PO SCH (11:33)
[2018-10-16] MEDS: ANASTROZOLE 1 MG TAB PO SCH (11:33)
[2018-10-16] MEDS: FERROUS SULFATE 325 MG TAB PO SCH (11:33)
[2018-10-16] MEDS: FAMOTIDINE 20 MG TAB PO SCH (11:34)
[2018-10-16] MEDS: NYSTATIN POWDER 15 GM BTL TP SCH ×3 (11:58→21:10)
--- NOTE | 2018-10-16 12:51 | CPEKG ---
Test Reason : OPEN Blood Pressure : / mmHG Vent. Rate : 068 BPM Atrial Rate : 068 BPM P-R Int : 195 ms QRS Dur : 120 ms QT Int : 441 ms P-R-T Axes : 058 011 105 degrees QTc Int : 470 ms Sinus rhythm -- Restored since October 15, 2018 Incomplete left bundle branch block Probable left atrial abnormality Confirmed by Evelio Hightower ([id number]) on 10/16/2018 12:51:28 PM Referred By: Confirmed By:vEelio Hightower
--- NOTE | 2018-10-16 13:13 | GCON ---
CARDIOLOGY CONSULT DATE OF CONSULTATION: 10/16/2018 REFERRING PHYSICIAN: Zena Ovalle MD PRIMARY CARE: Dr. Renita Hayward PRIMARY CHARCOAL UNLOADER: Dr. Fran Potts. PRIMARY HARDWARE DESIGNER: At [facility] is Randy Bautista NP. CHIEF COMPLAINT: Bradycardia. HISTORY OF PRESENT ILLNESS: We were asked by Dr. Ovalle to visit with the patient. The patient i s a 78-year-old female with end-stage renal disease on hemodialysis, hypertension, pulmonary hyperten magda, history of nrs-grsi-mimitnoa coronary disease, moderate mitral regurgitation. She was admitted to the hospital from dialysis after the nursing staff there found her to be bradycardic by vital sig ns. I reviewed previous hospital records from [facility] in June of this year. She was a dmitted there with presyncope during dialysis and found to be intermittently bradycardic with episode s of, by report, junctional rhythm and PACs. She was seen by Cardiology there and felt that her epis odes were due to vasovagal, and a pacemaker was not recommended at that time. She was then seen in our office and a Holter monitor was placed. This has not yet been returned by t he patient and we do not have this data. Yesterday at dialysis, she was noted to be bradycardic, by report into the 30s. She did not have presyncope at that time, but was complaining of a cough with a ssociated chest pain. Upon my evaluation this morning, she is not having chest pain or dyspnea. She does not feel lightheaded. She does endorse intermittent lightheadedness in the recent past, but no syncope. She complains of chronic cough productive of minimal amounts of white sputum without hemop tysis. REVIEW OF SYSTEMS: A full 10-point review of systems is not completely obtained as the patient has m ild developmental delay. ALLERGIES: Codeine. PAST MEDICAL HISTORY: 1. End-stage renal disease on hemodialysis. 2. Anemia. 3. Eri-rfly-camyblbq coronary disease on the basis of coronary angiogram in 2016. This showed 40% L AD disease. 4. Pulmonary hypertension. 5. History of breast cancer. 6. Treated sleep apnea. 7. Morbid obesity. 8. Developmental delay. 9. Diabetes. 10. GERD. 11. Hypertension. 12. Hypothyroidism. 13. Macular degeneration. 14. Depression. 15. Valvular heart disease with moderate mitral regurgitation, mild tricuspid regurgitation, and tra ce aortic regurgitation. 16. MGUS. 17. Oxygen dependence. 18. Hyperparathyroidism, secondary. 19. Gout. OUTPATIENT MEDICATIONS: Acetaminophen, albuterol, allopurinol, anastrozole, aspirin 81 mg daily, venkat cium carbonate, iron orally, Flonase, Prozac, furosemide 40 mg daily, gabapentin 100 mg b.i.d., hydra lazine 50 mg t.i.d., isosorbide mononitrate 20 mg b.i.d., lidocaine topical cream, Lipitor 40 mg maral y, meclizine p.r.n., MiraLAX p.r.n., promethazine, ranitidine, Renvela, Synthroid 75 mcg daily, tram adol p.r.n., vitamin D3 1000 units daily, Voltaren topical gel. FAMILY HISTORY: Not applicable to the current case. SOCIAL HISTORY: The patient has 2 daughters who are involved in her care. She lives at [facility]. She denies alcohol. She does not currently smoke. PHYSICAL EXAM: VITAL SIGNS: Blood pressure 126/47, heart rate 55, oxygen saturation 94% on 2 L. Sh e is afebrile. Respiratory rate is 18. GENERAL: Well-appearing, obese, older female in no acute di stress. HEENT: Sclerae clear and free of jaundice. Mucous membranes moist. Normocephalic, atrauma tic. CARDIOVASCULAR: JVP is less than 10. Regular rate and rhythm with soft, early systolic murmur at the left lower sternal border. LUNGS: Clear to auscultation bilaterally without wheezes, rhonch i, or rales. EXTREMITIES: Warm and well perfused without edema. NEURO: Alert and oriented x3 with out gross focal neurologic deficits. Appropriate mood and affect. She is slightly anxious. DATA: White count 8.6, hematocrit 29, and platelets 198. INR 0.98. Sodium 137, potassium 4.6, chlo ride 95, bicarb 25, BUN 66, creatinine 7. Hemoglobin A1c 6.5. Troponin negative x2. Albumin 3.6. EKG x3 reviewed by me: The first shows sinus rhythm with PACs and aberrant conduction. The second E KG shows junctional rhythm with PACs. Third EKG: Junctional rhythm with junctional escape, as well as escape beats coming from either the ventricles or lower in the His-Purkinje system. No ischemic c hanges on any tracings. I reviewed her echocardiogram dated June 2018: Normal ejection fraction, moderate mitral regurgita tion, mild tricuspid regurgitation with estimated PA pressure of 51 mmHg, trace aortic regurgitation. Chest x-ray reviewed by me: Mild fluid overload with no rigoberto failure. Cath at an outside institution 2016: LAD 40% stenosis. RV pressure at that time 82/16 with a wedge of 28. ASSESSMENT/PLAN: 78-year-old female with multiple medical problems, including end-stage renal diseas e on hemodialysis, pulmonary hypertension, hxr-mmas-qwumxgqe coronary disease. She presents with int ermittent bradycardia that is, at times, symptomatic as evidenced by lightheadedness. Given her evid ence of conduction system disease, she would benefit from pacemaker placement. 1. Sick sinus syndrome/junctional rhythm/conduction system disease: The risks, benefits, and altern atives of permanent pacemaker were reviewed with the patient, as well as her daughter in detail. The y agreed to proceed. This will be scheduled with Dr. Cardona later this afternoon. She is not on any me dications that should contribute to bradycardia. We will check TSH for completeness. 2. End-stage renal disease on hemodialysis: She does not have significant electrolyte abnormalities that would explain her bradycardia. She is getting dialysis today and then will go back on her regu lar schedule. She is followed by Dr. Byrd in the inpatient setting and sees Dr. Potts in the o utpatient setting. 3. Hypertension: Currently well controlled. 4. Pulmonary hypertension: 51 on echo in June. She does have treated sleep apnea. This will nee d to be followed up outpatient. 5. Coronary disease: No angina here. Negative troponins. Nonischemic EKG. Continue medical manag ement with aspirin and statin. 6. Valvular heart disease: Moderate mitral regurgitation, mild tricuspid regurgitation: Follow wit h serial echocardiogram. 7. Atrial fibrillation was mentioned during her [place] hospitalization, but I have no telemetry st rips of this and she has not had atrial fibrillation here. Would continue aspirin for now. We will be able to monitor for any atrial fibrillation or other arrhythmias once she has her pacemaker. Thank you for allowing us to participate in the patient's care. We will follow with you. /[id number]/MODL
[2018-10-16] MEDS: FLUTICASONE NASAL 120 SPRAYS/16 GM MDI EACHNARE SCH ×2 (13:15→21:09)
--- NOTE | 2018-10-16 14:24 | ASMTCMCOM ---
CM Note CM Note Notes: Pts case discussed in tx rounds. Pt lives at [facility]. Pt receives dialysis MWF. Pt is getting a pacemaker today at 3PM. Update sent to [facility]. CM to follow. Plan: [facility] Date Signed: 10/16/2018 02:24 PM Electronically Signed By:MARYSE Tapia
--- NOTE | 2018-10-16 15:56 | PDCARPN ---
<KadieBandare - Last Filed: 10/16/18 15:47> Cardiology Progress Note Chief Complaint: Bradycardia Assessment/Plan: Assessment: 1. Sick sinus syndrome with presyncope: HR noted to be in the 30s during dialysis yesterday. Several recurrent episodes of presyncope over the past year with recent hospitalization 06/2018 at [facility], symptoms were thought to be vasovagal at that time. HR 70-80bpm today 2. ESRD: she received dialysis today and will have dialysis again tomorrow morning. 3. HTN: currently well-controlled 4. Valvular disease: Moderate MR and mild TR on recent echo 5. Atrial fibrillation, paroxysmal: Mentioned in notes from recent hospitalization at [facility]. No telemetry or ECG strips demonstrating a-fib. She continues ASA 81mg. Plan: 1. Plan for implant of dual-chamber permanent pacemaker tomorrow afternoon. Patient will be NPO after breakfast. Ms. Burnett declined to hear the risks of PPM implant, but consent, including risks of PPM implant, were reviewed by Dr. Cardona with her daughters (all 3 POAs). 2. Continue to monitor for recurrence of atrial fibrillation - will continue to follow with PPM device interrogation 10/16/18 15:59 Subjective: No major issues or concerns. Ms. Burnett reports feeling fairly well overall, although slightly nervous. Reviewed/Discussed With: multidisciplinary team Time Spent with Patient: greater than 25 minutes Time Spent with Patient: Greater than 25 minutes spent on this patients care, greater than 50% of time spent counseling, educating, and coordinating care regarding the above mentioned plan. Objective: Vital Signs (8 Hrs) Temp Pulse Resp BP Pulse Ox 10/16/18 12:00 36.9 C 66 18 112/36 L 100 10/16/18 08:05 77 126/47 H 96 Intake/Output (24 Hrs) 10/15/18 10/16/18 10/17/18 05:59 05:59 05:59 Intake Total 670 Balance 670 Intake: Oral (ml) 670 Other: Weight 102 kg Number of Voids Toilet 1 Result Diagrams: 10/16/18 07:26 10/16/18 07:26 Cardiac Labs: Cardiac Lab Results (72 Hrs) 10/15/18 10/15/18 23:02 19:05 Troponin I 0.016 0.028 ICD10 Worksheet Patient Problems: Problems Problem Status Onset Chest pain Acute Junctional bradycardia Acute <Gurdeep Cardona - Last Filed: 10/16/18 20:38> Cardiology Progress Note Assessment/Plan: Addendum Gurdeep Cardona MD -patient seen and examined, case discussed with Sepideh Engle NP. I have performed all relevant aspects of history, physical exam and review of systems. Risks of transvenous pacemaker implantation including but not limited to , myocardial infarction, stroke, cardiac tamponade which may require emergent cardiac surgery, infection, bleeding, pneumothorax, lead dislodgement and risks of sedation/anesthesia were discussed. Long-term issues like pacemaker pocket erosion, lead failure, venous stenosis, superior vena cava syndrome, need for lead extraction were discussed. Need for close long-term follow-up in our device clinic was emphasized. Need for generator change was discussed. Procedure planned for tomorrow afternoon, daughter is power of deputy attorney general and has signed consent Objective: Vital Signs (8 Hrs) Temp Pulse Resp BP Pulse Ox 10/16/18 17:15 36.4 C 59 L 16 112/38 L 97 10/16/18 17:01 112/36 L Intake/Output (24 Hrs) 10/15/18 10/16/18 10/17/18 11:59 11:59 11:59 Intake Total 670 480 Balance 670 480 Intake: Oral (ml) 670 480 Other: Weight 102 kg Number of Voids Toilet 1 2 Result Diagrams: 10/16/18 07:26 10/16/18 07:26 Cardiac Labs: Cardiac Lab Results (72 Hrs) 10/15/18 10/15/18 23:02 19:05 Troponin I 0.016 0.028
--- NOTE | 2018-10-16 17:43 | HOSPPROG ---
Hospitalist Progress Note Assessment/Plan: DIAGNOSES: * acute junctional bradycardia with sinus disease * ESRD on chronic dialysis * anemia likely due to her renal disease, no specific w/u needed at present * high TSH is setting of acute cardiac issue -unclear of it's impact on heart issue -unclear if she misses doses of replacement -not symptomatic otherwise so she can follow w her primary MD or endocrine as outpt * Hx of AFib, CAD, CHF, moderate MR * Obstructive sleep apnea, obesity hypoventilation syndrome, pulmonary hypertension * Hypothyroidism * HX of Breast CA * Congenital cognitive impairment, developmental delay Pacemaker placement clearly indicated clinically. Patient was unable replaced for scheduling reasons today so will have it done tomorrow Had her usual dialysis today which she tolerated well Seen by me today on hospitals rounds as well as multidisciplinary rounds The patient had many questions about pacemaker house placed possible complications follow-up care etc and these are answered by me to her satisfaction PLANS: * Continual clinical research monitor overnight * continue current cardiac meds * Plan on pacemaker placement tomorrow * Continue her usual dialysis schedule as able SUBJECTIVE: pt feels "ok", denies sob, chest pain, lightheadedness today cough is better no fever sxs OBJECTIVE Vitals reviewed: intermittent bradycardia, otherwise stable Local Announcer, my review: sinus with long periods of absent p waves compensated with a slow junctional bradycardia narrow complex Exam: alert oriented skin warm dry color ok resps not labored lungs very diminishes BSs heart regular abd soft nondistended nontender, bowel sounds present limbs warm, mild edema iv site ok lab data: mild decrease in Hg to 9, normoctyic sugars good lytes good BUN creat stable for dialysis situation TSh is 7.2 Objective: Vital Signs Temp Pulse Resp BP Pulse Ox 36.9 C 66 18 112/36 L 100 10/16/18 12:00 10/16/18 12:00 10/16/18 12:00 10/16/18 17:01 10/16/18 12:00 Laboratory Results 10/16/18 07:26 10/16/18 07:26 10/15/18 10/16/18 10/17/18 06:59 06:59 06:59 Intake Total 670 Balance 670 PT 13.2 SEC (12.0-15.0) 10/15/18 13:00 INR 0.98 (0.83-1.16) 10/15/18 13:00 - Time Spent With Patient Time Spent with Patient: greater than 35 minutes Time Spent with Patient: Greater than 35 minutes spent on this patients care, greater than 50% of time spent counseling, educating, and coordinating care regarding the above mentioned plan. ICD10 Worksheet Patient Problems: Problems Problem Status Onset Chest pain Acute Junctional bradycardia Acute
[2018-10-17] MEDS: ACETAMINOPHEN 325 MG TAB PO PRN (04:24)
[2018-10-17] MEDS: guaiFENesin 200 MG/10 ML UDL PO PRN (04:41)
[2018-10-17] MEDS: ALBUTEROL 3 ML DEYVIAL IH PRN ×3 (04:52→21:38)
[2018-10-17] MEDS ORDERED: ceFAZolin 2 GM/DEXTROSE 100 ML IV ONE ×2 (07:00→13:42)
[2018-10-17] MEDS ORDERED: BACITRACIN IRRIGATION/NS 50,000 UNITS/1,000 ML BTL IRR ONE ×2 (07:00→13:42)
[2018-10-17] MEDS: ASPIRIN EC 81 MG TAB PO SCH (08:14)
[2018-10-17] MEDS: FAMOTIDINE 20 MG TAB PO SCH (08:14)
[2018-10-17] MEDS: GABAPENTIN 100 MG CAP PO SCH ×3 (08:14→21:22)
[2018-10-17] MEDS: SEVELAMER HCL 800 MG TAB PO SCH ×3 (08:14→18:46)
[2018-10-17] MEDS: FUROSEMIDE 40 MG TAB PO SCH (08:14)
[2018-10-17] MEDS: FERROUS SULFATE 325 MG TAB PO SCH (08:15)
[2018-10-17] MEDS: ALLOPURINOL 100 MG TAB PO SCH (08:15)
[2018-10-17] MEDS: CHOLECALCIFEROL VIT D3 1,000 UNITS TAB PO SCH (08:15)
[2018-10-17] MEDS: CALCIUM CARBONATE 500 MG CHEWABLE TAB PO SCH ×3 (08:15→21:22)
[2018-10-17] MEDS: ANASTROZOLE 1 MG TAB PO SCH (08:21)
[2018-10-17] MEDS: ATORVASTATIN CALCIUM 40 MG TAB PO SCH (08:21)
--- NOTE | 2018-10-17 09:30 | PDMN ---
Medical Necessity Medical necessity: Pt changed to IP as of 10/16/2018 per and TRAVIS M-[id number]; los > 2 mn for ongoing tx and management of acute junctional bradycardia with sinus disease; requiring ongoing cardiac monitoring and pacemaker placement; Comorbid ESRD on chronic dialysis, anemia, and high TSH in the setting of acute cardiac issue.
[2018-10-17] MEDS: NYSTATIN POWDER 15 GM BTL TP SCH ×3 (10:06→21:33)
[2018-10-17] MEDS ORDERED: LIDOCAINE 1% *Not for Epidural 20 ML MDV ONE (11:49)
[2018-10-17] MEDS: FLUTICASONE NASAL 120 SPRAYS/16 GM MDI EACHNARE SCH ×2 (12:53→21:34)
[2018-10-17] MEDS: ISOSORBIDE DINITRATE 20 MG TAB PO SCH ×3 (12:54→14:54)
--- NOTE | 2018-10-17 12:58 | HOSPPROG ---
Hospitalist Progress Note Assessment/Plan: * acute junctional bradycardia/sick sinus syndrome * ESRD on chronic dialysis * anemia likely due to her renal disease, no specific w/u needed at present * Hypothyroidism with high TSH: will increase Levothyroxine * Hx of AFib, CAD, CHF, moderate MR * Obstructive sleep apnea, obesity hypoventilation syndrome, pulmonary hypertension * Hypothyroidism * HX of Breast CA * Congenital cognitive impairment, developmental delay Plan: Permanent Pacemaker scheduled for today HD per renal, had this morning Bronchodilator per her request Subjective: had HD earlier today. Awaiting PM today Objective: Vital Signs Temp Pulse Resp BP Pulse Ox 36.8 C 58 L 16 140/35 H 99 10/17/18 09:00 10/17/18 09:00 10/17/18 07:51 10/17/18 09:00 10/17/18 07:51 Laboratory Results 10/16/18 07:26 10/17/18 03:08 10/16/18 10/17/18 10/18/18 05:59 05:59 05:59 Intake Total 420 730 Balance 420 730 PT 13.2 SEC (12.0-15.0) 10/15/18 13:00 INR 0.98 (0.83-1.16) 10/15/18 13:00 - Physical Exam Constitutional: no apparent distress Eyes: PERRL, EOMI Ears, Nose, Mouth, Throat: moist mucous membranes Cardiovascular: regular rate and rhythym, no murmur, rub, or gallop Respiratory: reduced air movement Gastrointestinal: normoactive bowel sounds, soft, non-tender abdomen Skin: warm Neurologic: AAOx3 Psychiatric: interacting appropriately, not anxious, not encephalopathic Lymph, Heme, Immunologic: No petechiae ICD10 Worksheet Patient Problems: Problems Problem Status Onset Chest pain Acute Junctional bradycardia Acute
[2018-10-17] MEDS ORDERED: LEVOTHYROXINE 75 MCG TAB PO SCH (13:01)
[2018-10-17] MEDS ORDERED: LEVOTHYROXINE 25 MCG TAB PO ONE (13:15)
[2018-10-17] MEDS ORDERED: NS 1,000 ML IV ONE (13:42)
--- NOTE | 2018-10-17 16:17 | ASMTCMCOM ---
CM Note CM Note Notes: 10/17/2018 Case Management Note Discussed pt during rounds this morning. Pt is open with [facility]. Faxed updates. Case Management d/c poc: return to [facility] with [facility] to resume services. Case Management to follow. Date Signed: 10/17/2018 04:16 PM Electronically Signed By:Kori Beauchamp RN
[2018-10-17] MEDS ORDERED: BUPIVACAINE 0.75% 10 ML SDV ONE (17:04)
[2018-10-17] MEDS ORDERED: LIDOCAINE 1% 300 MG/30 ML SDV ONE (17:04)
[2018-10-17] MEDS ORDERED: IOPAMIDOL (ISOVUE-300) 100 ML BTL ONE (17:05)
--- NOTE | 2018-10-17 17:13 | POSTANESTH ---
Post Anesthetic Evaluation Cardiovascular Status: Normal, Stable Respiratory Status: Normal, Stable Level of Consciousness/Mental Status: Can Participate in Eval, Alert and Oriented Pain Control: Adequate, Prn Tx Ordered Nausea/Vomiting Control: Adequate, Prn Tx Ordered Complications Possibly Related to Anesthesia: Other, See Comments (Asking not to be hurt. Still a bit disoriented from anesthesia.)
--- NOTE | 2018-10-17 17:16 | PDANEPAE ---
ANE History of Present Illness 78 yo female with multiple medical problems presents with sick sinus syndrome and presyncopal episodes for perm pacemaker implantation. ANE Past Medical History - Cardiovascular History Hx Hypertension: Yes Hx Arrhythmias: Yes Hx Chest Pain: No Hx Coronary Artery / Peripheral Vascular Disease: Yes Hx CHF / Valvular Disease: Yes Hx Palpitations: No Cardiovascular History Comment: MR/TR - Pulmonary History Hx COPD: Yes Hx Asthma/Reactive Airway Disease: No Hx Recent Upper Respiratory Infection: No Hx Oxygen in Use at Home: Yes O2 in Use at Home (L/minute): 2 Hx Sleep Apnea: Yes Pulmonary History Comment: uses CPAP nightly - Neurologic History Hx Cerebrovascular Accident: No Hx Seizures: No Hx Dementia: No - Endocrine History Hx Diabetes: Yes Hypothyroid: Yes Hyperthyroid: No Obesity: yes - Renal History Hx Renal Disorders: Yes Renal History Comment: END STAGE RENAL DISEASE, received HD this AM - Liver History Hx Hepatic Disorders: No - Neurological & Psychiatric Hx Hx Neurological and Psychiatric Disorders: Yes Neurological / Psychiatric History Comment: developmental delay. depression - Cancer History Hx Cancer: Yes Cancer History Comment: RIGHT BREAST CANCER CURRENTLY - - Congenital Disorder History Hx Congenital Disorders: No - GI History Hx Gastrointestinal Disorders: No - Chronic Pain History Chronic Pain: No - Surgical History Prior Surgeries: PARTIAL HYSTERECTOMY 2004. 1971 ("I THINK, I CAN'T REMEMBER OFF HAND") ANE Review of Systems Review of Systems: - Systems Cardiac: Reports: lightheadedness ANE Patient History - Allergies Allergies/Adverse Reactions: codeine Allergy (Verified 05/29/17 17:28) - Home Medications Home Medications: Acetaminophen [Tylenol 325mg (*)] 650 mg PO Q6 PRN 10/15/18 [Last Taken Unknown] Albuterol [Proventil Neb] 2.5 mg IH Q4H PRN 10/15/18 [Last Taken Unknown] Allopurinol [Allopurinol 100 MG (*)] 100 mg PO DAILY 10/15/18 [Last Taken Unknown] Anastrozole [Arimidex 1 mg (*)] 1 mg PO DAILY 10/15/18 [Last Taken Unknown] Aspirin EC [Aspirin EC 81 mg (*)] 81 mg PO DAILY 10/15/18 [Last Taken Unknown] Atorvastatin Calcium [Lipitor 40 mg (*)] 40 mg PO DAILY 10/15/18 [Last Taken Unknown] Calcium Carbonate [Tums X-Str] 300 mg PO TID 10/15/18 [Last Taken Unknown] Cholecalciferol Vit D3 [Vitamin D3 (*)] 1,000 units PO DAILY 10/15/18 [Last Taken Unknown] Ferrous Sulfate [Ferrous Sulf 325 MG (*)] 325 mg PO DAILY 10/15/18 [Last Taken Unknown] Fluticasone Propionate [Flonase Allergy Relief] 1 spray EACHNARE BID PRN [Last Taken Unknown] Furosemide [Lasix 40 MG (*)] 40 mg PO DAILY 10/15/18 [Last Taken Unknown] Gabapentin [Neurontin 100 MG (*)] 100 mg PO TID 10/15/18 [Last Taken Unknown] Herbals/Supplements -Info Only 1 ea PO DAILY 10/15/18 [Last Taken Unknown] Isosorbide Dinitrate [Isosorbide Dinitrate 20 mg (*)] 20 mg PO BIDNITRATE [Last Taken Unknown] Levothyroxine [Synthroid 75 mcg (*)] 75 mcg PO MOWEFR 10/15/18 [Last Taken Unknown] Lidocaine 1% [Xylocaine-Mpf 1% SDV (*)] 0.5 ml IJ DAILY PRN 10/15/18 [Last Taken Unknown] Lidocaine 2% Jelly [Lidocaine 2% Jelly (*)] 1 mike MM DAILY PRN 10/15/18 [Last Taken Unknown] Meclizine HCl 25 mg PO TID PRN 10/15/18 [Last Taken Unknown] Miconazole Nitrate [Desenex] 30 gm TP BID PRN 10/15/18 [Last Taken Unknown] Nystatin Powder [Mycostatin Powder (RX)] 1 mike TOP TID 10/15/18 [Last Taken Unknown] Polyethylene Glycol 3350 [Miralax 17 gm (*)] 17 gm PO DAILY PRN 10/15/18 [Last Taken Unknown] Promethazine HCl [Phenergan 25mg (*)] 25 mg PO DAILY PRN 10/15/18 [Last Taken Unknown] Ranitidine HCl 150 mg PO BID 10/15/18 [Last Taken Unknown] Sevelamer Carbonate [Renvela] 800 mg PO TIDMEAL 10/15/18 [Last Taken Unknown] Sodium Chloride [Saline Nose Oxford] 1 spray NS Q1HR PRN 10/15/18 [Last Taken Unknown] Triamcinolone 0.1% [Triamcinolone 0.1% Cream (*)] 1 mike TP BID PRN 10/15/18 [ Last Taken Unknown] guaiFENesin [Cough Syrup] 10 ml PO Q6H PRN 10/15/18 [Last Taken Unknown] hydrALAZINE [Apresoline 50 mg (*)] 50 mg PO TID 10/15/18 [Last Taken Unknown] methylPREDNISolone ACETATE [Depo-Medrol 20 mg] 20 mg IJ DAILY PRN 10/15/18 [ Last Taken 10/04/18] traMADol [Ultram 50 mg (*)] 50 mg PO BID PRN 10/15/18 [Last Taken Unknown] - NPO status NPO Status: no food or drink >8 hours - Anes Hx Anes Hx: no prior problems - Smoking Hx Smoking Status: Never smoked - Alcohol Use Alcohol Use: None - Family Anes Hx Family Anes Hx: neg - N/A Family Hx Anesthesia Complications: N/A ANE Labs/Vital Signs - Labs Result Diagrams: 10/16/18 07:26 10/17/18 03:08 - Vital Signs Blood Pressure: 108/54 Heart Rate: 48 Respiratory Rate: 18 O2 Sat (%): 98 Height: 157.48 cm Weight: 101.1 kg ANE Physical Exam - Airway Neck exam: short neck Mallampati Score: Class 3 Mouth exam: poor dentition - Pulmonary Pulmonary: clear to auscultation - Cardiovascular Cardiovascular: regular rate and rhythym - ASA Status ASA Status: IV ANE Anesthesia Plan Anesthesia Plan: GA with mask Total IV Anesthesia: Yes
[2018-10-17] MEDS ORDERED: PROPOFOL/EMULSION 500 MG/50 ML BOTTLE IV ONE ×2 (17:22→18:20)
[2018-10-17] MEDS ORDERED: fentaNYL 100 MCG/2 ML INJ ONE (17:22)
[2018-10-17] MEDS ORDERED: LIDOCAINE 2% 2 ML INJ ONE (17:22)
[2018-10-17] MEDS ORDERED: ONDANSETRON 4 MG/2 ML VIAL IVP PRN (19:14)
[2018-10-17] MEDS ORDERED: ACETAMINOPHEN 500 MG TAB PO PRN (19:14)
[2018-10-17] MEDS ORDERED: NALOXONE HCL 0.4 MG/ML INJ IVP PRN (19:14)
--- NOTE | 2018-10-17 20:25 | EPPROC ---
Electrophysiology Procedure Note: PROCEDURE PERFORMED: 1. Implantation of an V Pacemaker 2. Subclavian vein angiography 3. Fluoroscopy INDICATION: Bradycardia, presyncope PROCEDURE NOTE: Patient presented to the cardiac catherization laboratory in a fasting, post absorptive state. Dr. Annmarie Holly administered moderate sedation. The R infraclavicular area was prepped and draped in the usual sterile fashion (AV fistula for dialysis L arm). Lidocaine plus bupivacaine was used for local anesthesia. R subclavian venography was performed by injection of iodinated contrast into the left antecubital vein. This was done to assure patency of the vein and also to assess for any anatomical aberrations. Using a combination of blunt and sharp dissection and electrocautery, the dissection was carried down to the prepectoral fascia. A pocket was made in this anatomical plane. All bleeding was controlled with electrocautery. The pocket was packed with gauze soaked in antibiotic solution. Fluoroscopy was utilized during the entire procedure for venous access and placement of the leads. Using a direct stick technique the left extrathoracic axillary vein was accessed with 1 stick using the modified Seldinger technique. Placement of the guidewire into the venous system was confirmed by low-pressure blood return and also by visualizing the guide wire advancing into the inferior vena cava. One #6 Syrian sheath was advanced under fluoroscopic guidance over the guidewire. But this sheath kinked and therefore 8 Fr sheath with retained guidewire was used to prevent kinking. An active fixation ventricular lead was advanced into the right ventricular apex and screwed in place. The peel away sheath was removed. Pacing thresholds, sensing parameters and lead impedances were measured. There was no diaphragmatic stimulation at maximum output. The lead was sutured to the prepectoral fascia with 3 nonabsorbable sutures. Second suture sleeve was applied more proximally to reduce risk of twiddler syndrome in the patient with developmental delay. The pocket was again inspected for any bleeding. The lead was attached to the pacemaker securely. The pacemaker was inserted into the pocket and secured in place with a nonabsorbable suture. Fluoroscopy was performed in CHAUDHARI and SLOVAK planes to verify right-sided placement of the lead. Also fluoroscopy of the pacemaker pocket was performed. The pacemaker pocket was closed in 3 layers with absorbable monocryl sutures and mann. Appropriate dressing was applied. The patient left the cardiac catheterization laboratory in stable condition. Serial Numbers: 1. Device: Biotronik Edora SRT [id number] 2. Ventricular Lead: Biotronik Solia S53 SN [id number] Stimulation Thresholds & Impedance Measurements: 1. Ventricular Lead R 8.8 mV 0.5 V 0.4 ms 682 ohm Sarwat Pacing Parameters 1. Pacing mode: VVI 2. Lower rate: 40 ppm Patient Problems: Problems Problem Status Onset Junctional bradycardia Acute Chest pain Acute
[2018-10-17] MEDS: traMADol 50 MG TAB PO PRN (21:21)
[2018-10-18] MEDS: ACETAMINOPHEN 325 MG TAB PO PRN ×3 (01:08→13:53)
[2018-10-18] MEDS: guaiFENesin 200 MG/10 ML UDL PO PRN (01:12)
[2018-10-18 03:31] LABS: PLATELET COUNT 183 10^3/uL (150-400)
--- NOTE | 2018-10-18 06:51 | CPEKG ---
Test Reason : OPEN Blood Pressure : / mmHG Vent. Rate : 056 BPM Atrial Rate : 057 BPM P-R Int : 197 ms QRS Dur : 118 ms QT Int : 472 ms P-R-T Axes : 061 008 106 degrees QTc Int : 456 ms Sinus rhythm Incomplete left bundle branch block Low voltage, precordial leads Left atrial abnormality No change from October 16, 2018 Confirmed by Evelio Hightower ([id number]) on 10/18/2018 6:50:39 AM Referred By: Confirmed By:Evelio Hightower
[2018-10-18] MEDS: FLUTICASONE NASAL 120 SPRAYS/16 GM MDI EACHNARE SCH (09:00)
[2018-10-18] MEDS: traMADol 50 MG TAB PO PRN (09:01)
[2018-10-18] MEDS: ALLOPURINOL 100 MG TAB PO SCH (09:01)
[2018-10-18] MEDS: FAMOTIDINE 20 MG TAB PO SCH (09:01)
[2018-10-18] MEDS: SEVELAMER HCL 800 MG TAB PO SCH (09:01)
[2018-10-18] MEDS: CALCIUM CARBONATE 500 MG CHEWABLE TAB PO SCH (09:01)
[2018-10-18] MEDS: GABAPENTIN 100 MG CAP PO SCH (09:02)
[2018-10-18] MEDS: ASPIRIN EC 81 MG TAB PO SCH (09:02)
[2018-10-18] MEDS: FUROSEMIDE 40 MG TAB PO SCH (09:02)
[2018-10-18] MEDS: CHOLECALCIFEROL VIT D3 1,000 UNITS TAB PO SCH (09:02)
[2018-10-18] MEDS: FERROUS SULFATE 325 MG TAB PO SCH (09:02)
[2018-10-18] MEDS: ATORVASTATIN CALCIUM 40 MG TAB PO SCH (09:02)
[2018-10-18] MEDS: ANASTROZOLE 1 MG TAB PO SCH (09:02)
[2018-10-18] MEDS: ISOSORBIDE DINITRATE 20 MG TAB PO SCH ×2 (09:02→13:53)
--- NOTE | 2018-10-18 09:23 | SOAPPROG ---
SOAP Progress Note Assessment/Plan: Assessment: This is my first time meeting Lucía. She has ESRD due to DM, and has a history of DD 1. s/p Pacer Per Dr. Cardona. Pt is distressed by mann and post op pain, but generally doing ok 2. ESRD [facility] Dr. Potts, HD here Tu and Wed, on again for tomorrow. 3. Disposition Back to [facility] when able 4. HTN Controlled 5. Elevated Phos Increase renvela Plan: 10/18/18 09:18 10/18/18 09:23 Subjective: Doing ok Objective: Vital Signs Temp Pulse Resp BP Pulse Ox 36.6 C 60 14 147/56 H 100 10/18/18 08:00 10/18/18 08:00 10/18/18 08:00 10/18/18 08:00 10/18/18 08:00 Laboratory Results 10/18/18 03:18 10/18/18 03:18 10/17/18 10/18/18 10/19/18 05:59 05:59 05:59 Intake Total 730 840 Output Total 100 Balance 730 740 PT 13.2 SEC (12.0-15.0) 10/15/18 13:00 INR 0.98 (0.83-1.16) 10/15/18 13:00 Physical Exam - Physical Exam General Appearance: mild distress Respiratory: lungs clear Cardiac/Chest: regular rate, rhythm Extremities: pedal edema Neuro/Psych: oriented x 3 ICD10 Worksheet Patient Problems: Problems Problem Status Onset Chest pain Acute Junctional bradycardia Acute
--- NOTE | 2018-10-18 10:40 | PDCARPN ---
Cardiology Progress Note Chief Complaint: S/p implant of single chamber PPM Assessment/Plan: Assessment: 1. Bradycardia: s/p implant of a Biotronik single-chamber permanent pacemaker yesterday 10/17 second to recurrent bradycardia and presyncope during dialysis. Pacemaker interrogation this morning demonstrates normal device function with 3 % RV pacing with VVI 40 and threshold 0.6@0.4, 663. 2. ESRD: Dialysis-dependent. 3. HTN: currently well-controlled 4. Valvular disease: Moderate MR and mild TR on recent echo 5. Atrial fibrillation, paroxysmal: Mentioned in notes from recent hospitalization at [facility] although there are no telemetry strips documenting AF. She continues ASA 81mg. Plan: 1. Patient is appropriate for discharge home per hospitalist service once she feels comfortable 2. Follow-up in 1 week with our device clinic 3. Follow-up with Cardiology in 1 month 10/18/18 10:35 Subjective: Mild discomfort to right pectoral incision site. Mild lightheadedness this morning, consistent with baseline. Reviewed/Discussed With: multidisciplinary team Time Spent with Patient: greater than 25 minutes Time Spent with Patient: Greater than 25 minutes spent on this patients care, greater than 50% of time spent counseling, educating, and coordinating care regarding the above mentioned plan. Objective: Vital Signs (8 Hrs) Temp Pulse Resp BP Pulse Ox 10/18/18 08:00 36.6 C 60 14 147/56 H 100 10/18/18 03:47 36.6 C 53 L 16 138/56 H 99 Intake/Output (24 Hrs) 10/17/18 10/18/18 10/19/18 05:59 05:59 05:59 Intake Total 730 840 Output Total 100 Balance 730 740 Intake: Oral (ml) 730 640 IV Intake (ml) 200 Output: Urine (ml) 100 Toilet 100 Other: Weight 101.1 kg 101.3 kg Intake Quantity Yes Sufficient Number of Voids Toilet 2 1 Result Diagrams: 10/18/18 03:18 10/18/18 03:18 Cardiac Labs: Cardiac Lab Results (72 Hrs) 10/15/18 10/15/18 23:02 19:05 Troponin I 0.016 0.028 - Physical Exam Constitutional: WDWN Ears, Nose, Mouth, Throat: moist mucous membranes Cardiovascular: regular rate and rhythm, no murmurs, no rubs, no gallops Peripheral Pulses: 2+: dorsalis-pedis (R), dorsalis-pedis (L) Respiratory: clear to auscultate bilat, no crackles, no wheezes Gastrointestinal: normoactive bowel sounds, no tenderness, no masses Skin: other (Right pectoral incision without evidence of hematoma, oozing, redness, swelling, or warmth. Dressing is clean, dry, and intact.) Neurologic: AAOx3 Psychiatric: cooperative, interactive, anxious ICD10 Worksheet Patient Problems: Problems Problem Status Onset Chest pain Acute Junctional bradycardia Acute
[2018-10-18] MEDS ORDERED: SEVELAMER HCL 800 MG TAB PO SCH (12:00)
--- NOTE | 2018-10-18 12:07 | PDDCSUM ---
Discharge Summary Discharge Summary: This is a 78 yo female who has DD, ESRD, CHF, Afib, Anemia who was admitted from HD due to bradycardia with a HR in the 30's. She was evaluated by Cardiology and a PPM was inserted. She has been cleared for d/c per Cardiology. She will f/u with Cardiology in 2-3 weeks and with her PCP in 1 week. DDX: * acute junctional bradycardia/sick sinus syndrome * ESRD on chronic dialysis * anemia likely due to her renal disease, no specific w/u needed at present * Hypothyroidism with high TSH: will increase Levothyroxine * Hx of AFib, CAD, CHF, moderate MR * Obstructive sleep apnea, obesity hypoventilation syndrome, pulmonary hypertension * Hypothyroidism * HX of Breast CA * Congenital cognitive impairment, developmental delay Exam: NAD RRR DECREASED LUNG SOUNDS S/NT/ND SKIN WARM MEDS: SEE MED REC F/U: PER ABOVE TOTAL TIME SPENT ON D/C IS 35 MINS
--- NOTE | 2018-10-18 12:19 | CPEKG ---
Test Reason : OPEN Blood Pressure : / mmHG Vent. Rate : 057 BPM Atrial Rate : 057 BPM P-R Int : 196 ms QRS Dur : 124 ms QT Int : 461 ms P-R-T Axes : 049 012 096 degrees QTc Int : 449 ms Sinus rhythm Nonspecific intraventricular conduction delay Possible left atrial abnormality No significant change from October 17, 2018 Confirmed by Evelio Hightower ([id number]) on 10/18/2018 12:18:58 PM Referred By: Confirmed By:Evelio Hightower
[2018-10-18 12:46] VITALS: BP 124/50
[2018-10-18] MEDS: NYSTATIN POWDER 15 GM BTL TP SCH (13:36)
--- NOTE | 2018-10-18 13:46 | PDIAF ---
- Diagnosis Diagnosis: bradycardia, s/p PPM Code Status: Full Code - Medication Management Discharge Medications: electronically signed and located in the Home Medication List. - Orders Diet Recommendation: no restrictions on diet Diet Texture: Regular Texture Diet Additional Instructions: Activity: as tolerated F/U 1) with HD as ordered 2) with cardiology in 2-3 weeks 3)with PCP in 1-2 weeks - Follow Up Care Current Providers and Referrals: Patient,NotPresent [Unknown] - As per Instructions
--- NOTE | 2018-10-18 14:22 | ASMTLACE ---
LACE Length of stay for Answers: 3 days current admission Acuity / Level of Answers: Yes Care: Did the patient have an inpatient admission? Comorbidities - select Answers: Congestive heart failure all that apply Diabetes (uncontrolled or controlled) Moderate or severe liver or renal disease Other Notes: HTN; Developmental katerin y # of Emergency department Answers: 1-2 visits in the last 6 months Score: 15 Date Signed: 10/18/2018 02:21 PM Electronically Signed By:MARYSE Tapia
--- NOTE | 2018-10-18 14:24 | ASMTDCNOTE ---
Case Management Discharge Discharge Order Complete? Answers: Yes Patient to Obtain Answers: Other Notes: [facility] Medications Transportation Arranged Answers: Other Notes: [facility] transport Transport will Pick (Date 10/18/2018 02:00 PM & Time) EMTALA Complete Answers: No Case Management Transport Answers: No Form Complete Faxed Final Orders Answers: Yes Agency/Facility Transfer Answers: Yes Report Printed & Faxed to Receiving Agency Family Notified Answers: No Discharge Comments Notes: Pts case discussed in tx rounds. Pt is being discharged today back to [facility]. CM spoke to [facility] and she has arranged for transportation. DC orders sent. CM provided SUNG Miller w/ phone number to give report. CM available for changes. Plan: [facility] Date Signed: 10/18/2018 02:24 PM Electronically Signed By:MARYSE Tapia
--- NOTE | 2018-10-18 14:27 | ASDISCHSUM ---
Discharge Information Plan Status:SNF Medically Cleared to Leave:10/17/2018 Discharge Date:10/17/2018 CM D/C Disposition: ADT D/C Disposition:Intermediate Facility Projected Discharge Date:10/18/2018 11:00 AM Transportation at D/C: Discharge Delay Reason: Follow-Up Date:10/18/2018 11:00 AM Discharge Slot: Final Diagnosis: Placement Information Referral Type:*Senior Care/SNF Referral ID:[id number] Provider Name:[facility] Address 1:[address] Address 2: City:[place] Selection Factors: State:[place] Referral Type:Palliative Care Referral ID:[id number] Provider Name:[facility] Address 1:[address] Phone Number: Address 2: Fax Number: [facility]:[place] Selection Factors: State:[place] Patient Contact Information Contact Name:MAKEDA Relationship:Daughter Address: Work Phone: City: [place] Phone: State/Zip Code: Email: Financial Information Financial Class:Medicare Primary Plan Desc:MEDICARE IP PART B ONLY Primary Plan Number:[id number] Secondary Plan Desc:MEDICAID [facility]ALTH [facility] IP Secondary Plan Number:[id number] Assessment Information LACE LACE Length of stay for Answers: 3 days current admission Acuity / Level of Answers: Yes Care: Did the patient have an inpatient admission? Comorbidities - select Answers: Congestive heart failure all that apply Diabetes (uncontrolled or controlled) Moderate or severe liver or renal disease Other Notes: HTN; Developmental katerin y # of Emergency department Answers: 1-2 visits in the last 6 months Score: 15 Date Signed: 10/18/2018 02:21 PM Electronically Signed By:MARYSE Tapia [facility] CM Progress Note CM Note CM Note Notes: Pts case discussed in tx rounds. Pt lives at [facility]. Pt receives dialysis MWF. Pt is getting a pacemaker today at 3PM. Update sent to [facility]. CM to follow. Plan: [facility] Date Signed: 10/16/2018 02:24 PM Electronically Signed By:MARYSE Tapia [facility] Progress Note CM Note CM Note Notes: 10/17/2018 Case Management Note Discussed pt during rounds this morning. Pt is open with [facility]. Faxed updates. Case Management d/c poc: return to [facility] with [facility] to resume services. Case Management to follow. Date Signed: 10/17/2018 04:16 PM Electronically Signed By:Kori Beauchamp RN Case Management Discharge Plan Note Case Management Discharge Discharge Order Complete? Answers: Yes Patient to Obtain Answers: Other Notes: [facility] SNF Medications Transportation Arranged Answers: Other Notes: Sightly transport Transport will Pick (Date 10/18/2018 02:00 PM & Time) ADONIS Complete Answers: No Case Management Transport Answers: No Form Complete Faxed Final Orders Answers: Yes Agency/Facility Transfer Answers: Yes Report Printed & Faxed to Receiving Agency Family Notified Answers: No Discharge Comments Notes: Pts case discussed in tx rounds. Pt is being discharged today back to [facility]. [facility]. DC orders sent. KAYA provided SUNG Miller w/ phone number to give report. CM available for changes. Plan: [facility] Date Signed: 10/18/2018 02:24 PM Electronically Signed By:MARYSE Tapia [facility] Progress Note CM Note KAYA Note Notes: notified [facility] of the d/c. D/C info sent to [facility]. Date Signed: 10/18/2018 02:26 PM Electronically Signed By:MARYSE Tapia Intervention Information Intervention Type:*Incorrect Registration Date of Service:10/16/2018 10:07 AM Patient Type:Inpatient Staff Member:Brittany Alejo Hours: Discipline: Severity: Comment:
--- NOTE | 2018-10-18 14:27 | ASMTCMCOM ---
CM Note CM Note Notes: KAYA notified [facility] of the d/c. D/C info sent to [facility]. Date Signed: 10/18/2018 02:26 PM Electronically Signed By:MARYSE Tapia
[2018-10-19] MEDS ORDERED: LEVOTHYROXINE 100 MCG TAB PO SCH (06:00)
--- NOTE | 2018-10-19 12:08 | CPEKG ---
Test Reason : OPEN Blood Pressure : / mmHG Vent. Rate : 085 BPM Atrial Rate : 104 BPM P-R Int : 200 ms QRS Dur : 122 ms QT Int : 423 ms P-R-T Axes : -23 013 164 degrees QTc Int : 503 ms Atrial fibrillation Left bundle branch block Confirmed by Gage Barajas ([id number]) on 10/19/2018 12:07:41 PM Referred By: Confirmed By:Gage Barajas
--- NOTE | 2018-10-19 12:08 | CPEKG ---
Test Reason : OPEN Blood Pressure : / mmHG Vent. Rate : 078 BPM Atrial Rate : 000 BPM P-R Int : 255 ms QRS Dur : 115 ms QT Int : 450 ms P-R-T Axes : -87 044 127 degrees QTc Int : 513 ms Junctional rhythm Ventricular premature complex Incomplete left bundle branch block Low voltage, precordial leads Confirmed by Gage Barajas ([id number]) on 10/19/2018 12:08:13 PM Referred By: Confirmed By:Gage Barajas
== END 2018-10-18 15:15 | DRG 242 ==
LOC: EDUNIT# → INTOOBSV 14:14 → F2W 17:07 → OBSVTOIN 18:53
PROVIDERS: ADMIT Internal Medicine; ATTEND Internal Medicine
DX: I49.5 Sick sinus syndrome (principal); I13.2 Hypertensive heart and chronic kidney disease with heart failure and with stage 5 chronic kidney disease, or end stage renal disease; N18.6 End stage renal disease; I50.32 Chronic diastolic (congestive) heart failure; E11.22 Type 2 diabetes mellitus with diabetic chronic kidney disease; Z99.2 Dependence on renal dialysis; E66.2 Morbid (severe) obesity with alveolar hypoventilation; Z68.41 Body mass index [BMI] 40.0-44.9, adult; I25.10 Atherosclerotic heart disease of native coronary artery without angina pectoris; E03.9 Hypothyroidism, unspecified; K21.9 Gastro-esophageal reflux disease without esophagitis; N25.81 Secondary hyperparathyroidism of renal origin; M10.9 Gout, unspecified; I27.20 Pulmonary hypertension, unspecified; D63.1 Anemia in chronic kidney disease; I08.3 Combined rheumatic disorders of mitral, aortic and tricuspid valves; G31.84 Mild cognitive impairment of uncertain or unknown etiology; Z85.3 Personal history of malignant neoplasm of breast; H35.30 Unspecified macular degeneration; Z99.81 Dependence on supplemental oxygen
CPT/HCPCS: 84484-PO; 97116-GP; 97162-GP; 97165-GO; 97535-GO; C1786; C1898; G0378; G8978-GP-CK; G8979-GP-CI; G8987-GO-CJ; G8988-GO-CI; J0690; J2704; J3010; J7613; Q9967

== ENCOUNTER 2019-04-28 20:43 | Inpatient (IN) | payer OTHER, MEDICAID | END 2019-04-30 16:48 | LOC: F1N 22:48 ==